=== PATIENT | female | born 2000 | race Caucasian/White ===

== ENCOUNTER 2022-03-01 00:56 | Emergency (ER) | payer MEDICAID ==
[~2022-03-01] VITALS: Ht 165.1 cm; Wt 49.0 kg
[2022-03-01 01:00] VITALS: BP_SYST 121
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
--- NOTE | 2022-03-01 01:43 | NUR ---
URINE TEST NEGATIVE, URINE SAMPLE SENT TO LAB FOR DRUGSCREEN AND COVID KIERAN SWAB DONE AND SENT TO LAB.
[2022-03-01 01:59] LABS: BARBITURATE, URINE NEGATIVE (NEG <=200); BENZODIAZEPINE, URINE NEGATIVE (NEG <=150); CANNABINOID, URINE NEGATIVE (NEG <=50); COCAINE, URINE NEGATIVE (NEG <=150); METHAMPHETAMINES SCREEN,URINE NEGATIVE (NEG <=500); OPIATE, URINE NEGATIVE (NEG <=100); PHENCYCLIDINE SCREEN,URINE NEGATIVE (NEG <=25); UR TRICYCLIC ANTIDEPRESSANTS NEGATIVE (NEG <=300); URINE AMPHETAMINE NEGATIVE (NEG <=500); URINE METHADONE NEGATIVE (NEG <=200); URINE OXYCODONE SCREEN NEGATIVE (NEG <=100); URINE PROPOXYPHENE SCREEN NEGATIVE (NEG <=300)
[2022-03-01 02:17] LABS: RED BLOOD CELL COUNT(AUTO) 4.22 MIL/uL (4.2-6.2); RED CELL DISTRIBUTION WIDTH 12.6 % (9.0-15.0)
[2022-03-01 02:26] LABS: BASOPHILS % (AUTO) 0.4 % (0.0-2.0); EOSINOPHILS % (AUTO) 0.5 % (0.0-4.0); HEMATOCRIT 38.4 % (36-48); HEMOGLOBIN 13.2 g/dL (12.0-16.0); LYMPHOCYTES % (AUTO) 16.1 % (20.5-51.5); MEAN CORPUSCULAR HEMOGLOBIN 31 pg (27-31); MEAN CORPUSCULAR HGB CONC 34 % (32-36); MEAN CORPUSCULAR VOLUME 91 fL (79.0-98.0); MONOCYTES # (AUTO) 0.4 K/uL (0.0-1.0); MONOCYTES % (AUTO) 7.2 % (1.7-9.3); NEUTROPHILS # (AUTO) 4.7 K/uL (1.8-7.7); NEUTROPHILS % (AUTO) 75.8 % (40.0-70.0); PLATELET COUNT (AUTO) 209 K/uL (130-430); WHITE BLOOD COUNT (AUTO) 6.2 K/uL (4.8-10.8)
[2022-03-01 02:28] LABS: CALCIUM 9.1 mg/dL (8.4-11.0); CREATININE 0.65 mg/dL (0.55-1.30); POTASSIUM 3.4 mmol/L (3.5-5.1)
[2022-03-01 02:34] LABS: ALBUMIN 3.9 g/dL (3.4-4.8); TOTAL BILIRUBIN 0.4 mg/dL (0.0-1.0)
[2022-03-01 03:45] VITALS: BP_SYST 99
--- NOTE | 2022-03-01 04:45 | NUR ---
0445 PT ASKING FOR HER MEDICAL BILL AND WANTING TO GO HOME.TOLD AND EXPLAINED TO HER TO WAIT FOR THE PSYCH DR TO SEE HER.
--- NOTE | 2022-03-01 05:04 | NUR ---
0503 PATIENT WALK OUT FROM ER TO [facility].
[2022-03-01] MEDS ORDERED: IBUP-1969 PO (13:58)
== END 2022-03-01 05:00 | disposition left against medical advice (07) ==
LOC: SED 00:56
DX: F22 Delusional disorders (principal); F23 Brief psychotic disorder; Z20.822 Contact with and (suspected) exposure to COVID-19; Z79.899 Other long term (current) drug therapy
CPT/HCPCS: 36415; 80053; 80307; 81025; 85025; 99285

== ENCOUNTER 2022-03-01 11:00 | Emergency (ER) | payer MEDICAID ==
[~2022-03-01] VITALS: Ht 167.6 cm; Wt 47.6 kg
[2022-03-01 11:52] VITALS: BP_SYST 131
--- NOTE | 2022-03-01 11:53 | NUR ---
MOM CALLED FOR STATUS UPDATE
--- NOTE | 2022-03-01 12:05 | NUR ---
Patient to er, triaged pt vitals are stable and within normal limits, waiting on room sent back to waiting room.
--- NOTE | 2022-03-01 12:21 | NUR ---
Dr Suarez placed orders for patient
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
[2022-03-01] MEDS ORDERED: IBUP-1969 PO (13:58)
[2022-03-01 16:00] VITALS: BP_SYST 131
--- NOTE | 2022-03-01 16:00 | NUR ---
Pt not noted to be in waiting room. Attempted to provide discharge instructions. Pt did not answer.
== END 2022-03-01 16:00 | disposition home or self-care (01) ==
LOC: SED 11:00
DX: R51.9 Headache, unspecified (principal)
CPT/HCPCS: 70450-TC; 76376; 99284